=== PATIENT | female | born 1985 | race Asian ===

== ENCOUNTER 2016-05-14 09:30 | Day surgery (SDC) | payer MEDICAID ==
[~2016-05-14] VITALS: Ht 154.9 cm; Wt 55.0 kg
[2016-05-14] VITALS (9 sets, daily range): BP systolic 103–121; BP diastolic 55–67; PULSE 62–80; RESP 16–26; Ht 154.9 cm; Wt 55.0 kg
[~2016-05-14 09:30] MED LIST: CEFAZOLIN 1 GM INJ ONE; CEFAZOLIN 2 GM/50 ML (PMX) 50 ML IVPB SCH; LIDOCAINE 2% (SDV) 5 ML INJ ONE; SOD CHLORIDE 0.9% 1,000 ML IV SCH
[2016-05-14] MEDS ORDERED: NORE1TAB27 (10:20)
[2016-05-14] MEDS ORDERED: DEXAMETHASONE 4 MG/ML 1 ML INJ ONE (11:41)
[2016-05-14] MEDS ORDERED: PROPOFOL 20 ML ONE (11:41)
[2016-05-14] MEDS ORDERED: NEOSTIGMINE 3 MG/3 ML SYRINGE ONE (11:41)
[2016-05-14] MEDS ORDERED: CEFAZOLIN 1 GM INJ ONE (11:41)
[2016-05-14] MEDS ORDERED: MIDAZOLAM 1 MG/ML 2 ML INJ ONE (11:41)
[2016-05-14] MEDS ORDERED: ROCURONIUM 50 MG INJ ONE (11:41)
[2016-05-14] MEDS ORDERED: FENTAnyl 50 MCG/ML VIAL ONE (11:41)
[2016-05-14] MEDS ORDERED: ONDANSETRON 4 MG INJ ONE (11:41)
[2016-05-14] MEDS ORDERED: BUPIVACAINE 0.5%/EPI (SDV) 30 ML INJ ONE (12:03)
[2016-05-14] MEDS ORDERED: ONDANSETRON 4 MG INJ IV PRN (12:30)
[2016-05-14] MEDS ORDERED: hydrALAzine 20 MG INJ IV PRN (12:30)
[2016-05-14] MEDS ORDERED: LABETALOL HCL 20MG INJ IV PRN (12:30)
[2016-05-14] MEDS ORDERED: MEPERIDINE 25 MG INJ IV PRN (12:30)
[2016-05-14] MEDS ORDERED: TRIMETHOBENZAMIDE 100 MG/ML VIAL IM PRN (12:30)
[2016-05-14] MEDS ORDERED: DIPHENHYDRAMINE 50 MG INJ IV PRN (12:30)
[2016-05-14] MEDS ORDERED: MIDAZOLAM 1 MG/ML 2 ML INJ IV PRN (12:30)
[2016-05-14] MEDS ORDERED: HYDROmorphONE (0.2 MG/ML) 10ML SYG IV PRN ×3 (12:30)
[2016-05-14] MEDS ORDERED: EPHEDrine SULFATE 50 MG/5 ML SYG IV PRN (12:30)
[2016-05-14] MEDS ORDERED: FENTAnyl 50 MCG/ML VIAL IV PRN ×3 (12:30)
--- NOTE | 2016-05-14 12:34 | OPR ---
DATE OF OPERATION: 05/14/2016 PREOPERATIVE DIAGNOSIS: Right breast mass. POSTOPERATIVE DIAGNOSIS: Right breast mass. OPERATION PERFORMED: Excision of right breast mass. SURGEON: Kevin Gillis MD GRAVEL WHEELER: Dangelo Polk MD ANESTHESIA: General. ANESTHESIOLOGIST: Driss Borrego MD INDICATIONS FOR PROCEDURE: The patient is a 30-year-old female who presented with a palpable mass i n her right breast. Clinically, it appeared to be a benign process such as a fibroadenoma. She was counseled as to the risks versus benefits of excision. She consented and was scheduled for surgery . DESCRIPTION OF PROCEDURE: The patient was brought to the operating theater, placed under general an esthesia. The right breast was prepped and draped in the usual sterile fashion. The mass, which wa s in the upper outer quadrant, was identified and palpated. A small 2 to 3 cm incision was made dir ectly over it. Subcutaneous tissue and underlying breast parenchyma were gently dissected with caut bhavya. A well circumscribed mass was identified. It was enucleated with a gloved finger and removed and sent for permanent pathologic analysis. Bleeding was then controlled with cautery. The skin wa s then reapproximated with 5-0 PDS in subcuticular fashion. Benzoin and Steri-Strips were then appl ied. The patient tolerated the procedure well. Estimated blood loss was 10 mL. There were no comp lications and the patient was transported in stable condition to the recovery room where a circumfer ential compression dressing was applied. Dictated By: KEVIN GILLIS MD TL/LILLIAN Conf#: [id number] DID#: [id number]
== END 2016-05-14 14:00 | disposition home or self-care (01) ==
LOC: SDS 09:30
PROVIDERS: ATTEND Surgery Surgical Oncology
DX: D24.1 Benign neoplasm of right breast (principal)
CPT/HCPCS: 19120; 88307; J0690; J1100; J2175; J2250; J2405; J3010; Z7512; Z7610; J2710